=== PATIENT | female | born 1990 | race Hispanic/Latino ===

== ENCOUNTER 2018-11-14 18:23 | Emergency (ER) | payer OTHER ==
[2018-11-14] MEDS ORDERED: NA CHLORIDE 0.9% 1,000 ML ONE (19:09)
[2018-11-14 19:19] LABS: Absolute Lymphocytes (CBC) 1.6 K/uL (0.7-4.9); Basophils % 0.7 % (0-1.3); Hematocrit 30.5 % (36.0-45.0); Lymphocytes % 12.3 % (15.3-44.8)
[2018-11-14 19:45] LABS: ALT/SGPT 21 U/L (12-78); AST/SGOT 18 U/L (15-37); Albumin 3.5 g/dL (3.4-5.0); Alkaline Phosphatase 73 U/L (45-117); BUN Blood Urea Nitrogen 11 mg/dL (7-18); Bicarbonate 27 mmol/L (21-32); Bilirubin Direct 0.4 mg/dL (0-0.2); Bilirubin Total 1.6 mg/dL (0.2-1.0); Glucose Level 83 mg/dL (74-106); Lipase 33 U/L (73-393); Potassium 3.3 mmol/L (3.5-5.1); Protein, Total 7.8 g/dL (6.4-8.2); Sodium Level 137 mmol/L (136-145)
--- NOTE | 2018-11-14 19:56 | RAD REPORT ---
EXAM DESCRIPTION: RAD - Abdomen 1 View (KUB) - 11/14/2018 7:40 pm CLINICAL HISTORY: Abdomen pain. FINDINGS: The bowel gas pattern is unremarkable. No significant abnormal calcification is displayed A moderate amount of stool is present within the colon
[2018-11-14 20:59] LABS: Urine Mucus 2+ /HPF (NONE SEEN)
[2018-11-14 21:00] LABS: Urine Bacteria 20-50 /HPF (<20); Urine Culture Reflex Order REFLEXED; Urine RBC <5 /HPF (NONE SEEN)
[2018-11-14 21:04] LABS: Urine Blood TRACE (NEG); Urine Glucose NEGATIVE (NEG); Urine Protein 1+ (NEG); Urine pH 6.5 (5.0-7.0)
--- NOTE | 2018-11-14 21:12 | EDPHYS ---
Physician Documentation [facility] Name: Veronica Arthur Age: 28 yrs Sex: Female : 1990 Arrival Date: 11/14/2018 Time: 18:24 Bed 28 Private MD: ED Physician Kei Diana HPI: 11/14 19:25 This 28 yrs old Female presents to ER via Ambulatory with complaints of pm1 Constipation. 19:25 The patient presents with abdominal pain that is diffuse. Onset: The symptoms/episode pm1 began/occurred 1 week(s) ago. The symptoms do not radiate. Associated signs and symptoms: Pertinent positives: constipation, difficulty with urinating, subjective fevers at night, Pertinent negatives: blood in stools, chest pain, diarrhea, headache, nausea, shortness of breath, vomiting. The symptoms are described as crampy. Severity of pain: in the emergency department the pain is unchanged. The patient has not experienced similar symptoms in the past. The patient has not recently seen a physician. 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 - Social history:: Smoking status: Patient uses tobacco products, 2-3 cigarettes per day. - Ebola Screening: : Patient denies travel to an Ebola-affected area in the 21 days before illness onset. ROS: 19:25 Eyes: Negative for injury, pain, redness, and discharge, ENT: Negative for injury, pm1 pain, and discharge. 19:25 Neck: Negative for injury, pain, and swelling, Cardiovascular: Negative for chest pain, palpitations, and edema, Respiratory: Negative for shortness of breath, cough, wheezing, and pleuritic chest pain. 19:25 Back: Negative for injury and pain, MS/Extremity: Negative for injury and deformity, Skin: Negative for injury, rash, and discoloration, Neuro: Negative for headache, weakness, numbness, tingling, and seizure. 19:25 Constitutional: Positive for subjective fevers, Negative for poor PO intake. 19:25 Abdomen/GI: Positive for abdominal pain, constipation, Negative for nausea, vomiting, and diarrhea. 19:25 : Positive for difficulty urinating. Exam: 19:25 Constitutional: This is a well developed, well nourished patient who is awake, alert, pm1 and in no acute distress. Head/Face: Normocephalic, atraumatic. Eyes: Pupils equal round and reactive to light, extra-ocular motions intact. Lids and lashes normal. Conjunctiva and sclera are non-icteric and not injected. Cornea within normal limits. Periorbital areas with no swelling, redness, or edema. ENT: Nares patent. No nasal discharge, no septal abnormalities noted. Tympanic membranes are normal and external auditory canals are clear. Oropharynx with no redness, swelling, or masses, exudates, or evidence of obstruction, uvula midline. Mucous membranes moist. Neck: Trachea midline, no thyromegaly or masses palpated, and no cervical lymphadenopathy. Supple, full range of motion without nuchal rigidity, or vertebral point tenderness. No Meningismus. Chest/axilla: Normal chest wall appearance and motion. Nontender with no deformity. No lesions are appreciated. Cardiovascular: Regular rate and rhythm with a normal S1 and S2. No gallops, murmurs, or rubs. Normal PMI, no JVD. No pulse deficits. Respiratory: Lungs have equal breath sounds bilaterally, clear to auscultation and percussion. No rales, rhonchi or wheezes noted. No increased work of breathing, no retractions or nasal flaring. Abdomen/GI: Soft, non-tender, with normal bowel sounds. No distension or tympany. No guarding or rebound. No evidence of tenderness throughout. Back: No spinal tenderness. No costovertebral tenderness. Full range of motion. Skin: Warm, dry with normal turgor. Normal color with no rashes, no lesions, and no evidence of cellulitis. MS/ Extremity: Pulses equal, no cyanosis. Neurovascular intact. Full, normal range of motion. 19:25 Neuro: Orientation: is normal, Mentation: is normal, Motor: is normal, moves all fours, Sensation: is normal, no obvious gross deficits, Gait: is steady, at a normal pace, without difficulty. Vital Signs: 18:41 BP 131 / 65; Pulse 99; Resp 18; Temp 98.7; Pulse Ox 98% on R/A; Weight 55.34 kg (R); aj1 Height 5 ft. 3 in. (160.02 cm) (R); Pain 5/10; 20:00 BP 128 / 62; Pulse 80; Resp 16; Pulse Ox 99% on R/A; tr5 18:41 Body Mass Index 21.61 (55.34 kg, 160.02 cm) aj1 MDM: 18:46 Patient medically screened. pm1 21:08 Data reviewed: vital signs. Data interpreted: Pulse oximetry: on room air is 98 %. pm1 Interpretation: normal. Counseling: I had a detailed discussion with the patient and/or guardian regarding: the historical points, exam findings, and any diagnostic results supporting the discharge/admit diagnosis, lab results, radiology results, the need for outpatient follow up, to return to the emergency department if symptoms worsen or persist or if there are any questions or concerns that arise at home. 21:08 ED course: Discussed elevated white count and recommendation for CT abd/pelvis due to pm1 it. Patient would like to try laxatives and if no improvement or worsening of pain will comeback for CT scan. 11/14 18:57 Order name: Basic Metabolic Panel; Complete Time: 20:55 pm1 11/14 18:57 Order name: CBC with Diff; Complete Time: 19:32 pm1 11/14 18:57 Order name: Creatinine for Radiology; Complete Time: 20:55 pm1 11/14 18:57 Order name: Hepatic Function; Complete Time: 20:55 pm1 11/14 18:57 Order name: Lipase; Complete Time: 20:55 pm1 11/14 20:28 Order name: Urine Microscopic Only; Complete Time: 21:19 em1 11/14 18:57 Order name: IV Saline Lock; Complete Time: 19:08 pm1 11/14 18:57 Order name: Labs collected and sent; Complete Time: 19:08 pm1 11/14 18:57 Order name: XRAY Abdomen 1 View (KUB); Complete Time: 20:55 pm1 11/14 18:57 Order name: Urine Dipstick-Ancillary (obtain specimen); Complete Time: 20:28 pm1 11/14 20:36 Order name: Urine Dipstick--Ancillary (enter results); Complete Time: 21:19 em1 10/01 20:36 Order name: Urine --Ancillary (enter results); Complete Time: 21:19 em 11/14 21:03 Order name: Urine Culture [facility] 11/14 18:57 Order name: Urine Test (obtain specimen); Complete Time: 20:28 pm1 Administered Medications: 19:15 Drug: NS 0.9% 1000 ml Route: IV; Rate: 1000 ml; Site: left antecubital; tr5 11/15 00:39 Follow up: IV Status: Completed infusion; IV Intake: 1000ml tr5 Disposition: 11/14/18 21:10 Discharged to Home. Impression: Constipation, Unspecified abdominal pain, Urinary tract infection, site not specified. - Condition is Stable. - Discharge Instructions: Abdominal Pain, Adult, Constipation, Adult. - Prescriptions for Lactulose 10 gram/15 mL Oral Solution - take 30 milliliter by ORAL route once daily; 300 milliliter. Miralax 17 gram/dose Oral - take 1 packet by ORAL route once daily As needed dilute powder in 8 ounces of water or juice; 7 packet. Bactrim DS 800- 160 mg Oral Tablet - take 1 tablet by ORAL route every 12 hours for 10 days; 20 tablet. - Medication Reconciliation Form, Thank You Letter, Antibiotic Education, Prescription Opioid Use form. - Follow up: Emergency Department; When: As needed; Reason: Worsening of condition. Follow up: Private Physician; When: 2 - 3 days; Reason: Recheck today's complaints, Continuance of care, Re-evaluation by your physician. - Problem is new. - Symptoms have improved. Signatures: Dispatcher [employer] [facility] Tita Wei RN RN aj1 Eddi Lin NP IRON CASTER pm1 Sandoval Valdez RN RN tr5 Corrections: (The following items were deleted from the chart) 11/14 21:20 21:10 11/14/2018 21:10 Discharged to Home. Impression: Constipation; Unspecified pm1 abdominal pain. Condition is Stable. Forms are Medication Reconciliation Form, Thank You Letter, Antibiotic Education, Prescription Opioid Use. Follow up: Emergency Department; When: As needed; Reason: Worsening of condition. Follow up: Private Physician; When: 2 - 3 days; Reason: Recheck today's complaints, Continuance of care, Re-evaluation by your physician. Problem is new. Symptoms have improved. pm1 21:33 21:20 11/14/2018 21:10 Discharged to Home. Impression: Constipation; Unspecified tr5 abdominal pain; Urinary tract infection, site not specified. Condition is Stable. Discharge Instructions: Abdominal Pain, Adult, Constipation, Adult. Prescriptions for Lactulose 10 gram/15 mL Oral Solution - take 30 milliliter by ORAL route once daily; 300 milliliter, Miralax 17 gram/dose Oral - take 1 packet by ORAL route once daily As needed dilute powder in 8 ounces of water or juice; 7 packet. and Forms are Medication Reconciliation Form, Thank You Letter, Antibiotic Education, Prescription Opioid Use. Follow up: Emergency Department; When: As needed; Reason: Worsening of condition. Follow up: Private Physician; When: 2 - 3 days; Reason: Recheck today's complaints, Continuance of care, Re-evaluation by your physician. Problem is new. Symptoms have improved. pm1
--- NOTE | 2018-11-14 21:12 | ER ---
Nurse's Notes [facility] Name: Veronica Arthur Age: 28 yrs Sex: Female : 1990 Arrival Date: 11/14/2018 Time: 18:24 Bed 28 Private MD: Diagnosis: Constipation;Unspecified abdominal pain;Urinary tract infection, site not specified Presentation: 11/14 18:37 Presenting complaint: Patient states: "I can't poop, I can only get small pieces out aj1 since last week. It hurts when I try to use the restroom, I have chills, I feel weak" Patient reports RLQ and LLQ abdominal pain. Reports nausea. Denies vomiting, diarrhea. Reports that she believes she is running fever at night because of the chills. Transition of care: patient was not received from another setting of care. Onset of symptoms was 2018. Risk Assessment: Do you want to hurt yourself or someone else? Patient reports no desire to harm self or others. Initial Sepsis Screen: Does the patient meet any 2 criteria? No. Patient's initial sepsis screen is negative. Does the patient have a suspected source of infection? Yes: Acute abdominal pain. Care prior to arrival: None. 18:37 Method Of Arrival: Ambulatory aj1 18:37 Acuity: NYA 3 aj1 Triage Assessment: 18:41 General: Appears in no apparent distress. uncomfortable, Behavior is calm, cooperative, aj1 appropriate for age. Pain: Complains of pain in right lower quadrant and left lower quadrant Pain currently is 5 out of 10 on a pain scale. Neuro: Level of Consciousness is awake, alert, obeys commands. Cardiovascular: Patient's skin is warm and dry. Respiratory: Airway is patent Respiratory effort is even, unlabored, Respiratory pattern is regular, symmetrical. GI: Reports constipation, nausea. 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 - Social history:: Smoking status: Patient uses tobacco products, 2-3 cigarettes per day. - Ebola Screening: : Patient denies travel to an Ebola-affected area in the 21 days before illness onset. Screenin:40 Abuse screen: Denies threats or abuse. Nutritional screening: No deficits noted. tr5 Tuberculosis screening: No symptoms or risk factors identified. Fall Risk None identified. Assessment: 18:40 General: Appears uncomfortable, Behavior is calm, cooperative, appropriate for age. tr5 Pain: Complains of pain in abdomen. Pain: Pain does not radiate. Quality of pain is described as crampy, Pain began 2-3 days ago. Is intermittent. Neuro: Level of Consciousness is awake, alert, obeys commands, Oriented to person, place, time, Front Office Director are equal bilaterally Moves all extremities. Cardiovascular: Heart tones present Capillary refill < 3 seconds Pulses are all present. Edema is absent. Respiratory: Airway is patent Respiratory effort is even, unlabored, Respiratory pattern is regular, symmetrical. GI: Bowel sounds present X 4 quads. Abd is soft X 4 quads. : No signs and/or symptoms were reported regarding the genitourinary system. EENT: No signs and/or symptoms were reported regarding the EENT system. Derm: No signs and/or symptoms reported regarding the dermatologic system. Musculoskeletal: Capillary refill < 3 seconds, Range of motion: intact in all extremities. 20:00 Reassessment: Patient appears in no apparent distress at this time. Patient and/or tr5 family updated on plan of care and expected duration. Pain level reassessed. Patient is alert, oriented x 3, equal unlabored respirations, skin warm/dry/pink. Vital Signs: 18:41 BP 131 / 65; Pulse 99; Resp 18; Temp 98.7; Pulse Ox 98% on R/A; Weight 55.34 kg (R); aj1 Height 5 ft. 3 in. (160.02 cm) (R); Pain 5/10; 20:00 BP 128 / 62; Pulse 80; Resp 16; Pulse Ox 99% on R/A; tr5 18:41 Body Mass Index 21.61 (55.34 kg, 160.02 cm) aj1 ED Course: 18:24 Patient arrived in ED. rg4 18:40 Bed in low position. Call light in reach. Side rails up X 1. tr5 18:41 Triage completed. aj1 18:41 Arm band placed on. aj1 18:46 Eddi Lin NP is PHCP. pm1 18:46 Kei Diana MD is Attending Physician. pm1 19:05 Sandoval Valdez, RN is Primary Nurse. tr5 19:09 Initial lab(s) drawn, by me, sent to lab. Inserted saline lock: 20 gauge in left lt1 antecubital area, using aseptic technique. 19:38 XRAY Abdomen 1 View (KUB) In Process Unspecified. EDMS 20:29 Assisted to bathroom. tr5 20:29 Urine collected: clean catch specimen, clear. tr5 21:31 No provider procedures requiring assistance completed. IV discontinued. tr5 Administered Medications: 19:15 Drug: NS 0.9% 1000 ml Route: IV; Rate: 1000 ml; Site: left antecubital; tr5 10 00:39 Follow up: IV Status: Completed infusion; IV Intake: 1000ml tr5 Intake: 00:39 IV: 1000ml; Total: 1000ml. tr5 Outcome: 11/14 21:10 Discharge ordered by . pm1 21:31 Discharged to home ambulatory. tr5 21:31 Condition: stable 21:31 Discharge instructions given to patient, family, Instructed on discharge instructions, follow up and referral plans. Demonstrated understanding of instructions, follow-up care, medications, Prescriptions given X 3. 21:33 Patient left the ED. tr5 Signatures: Dispatcher [employer] EDTita Fernandez RN RN aj1 Eddi Lin, AYLA BOILER RIVETER pm1 Linsey Gayle 4 Vidya Sarahah lt1 Sandoval Valdez RN RN tr5
[2018-11-14 22:35] VITALS: TEMP 98.7
[2018-11-14 22:36] VITALS: BP 128/62; O2SAT 99
== END 2018-11-14 21:33 | disposition home or self-care (01) ==
LOC: ER 18:23
DX: K59.00 Constipation, unspecified (principal); N39.0 Urinary tract infection, site not specified; Z72.0 Tobacco use
CPT/HCPCS: 96361; 87088; 85025; 87086; 80048; 36415; 81025; 80076; 83690; 74018; 96360; 99284; J7030; 81003; 81015